=== PATIENT | male | born 1980 | race Caucasian/White ===

== ENCOUNTER → 2016-06-23 | Outpatient (CLI) | payer OTHER ==
[~2016-06-23] MED LIST: CLARITIN-D1 TAB 12 H PO; CLEOCIN PO; HYDROCHLOROTHIA25 MG PO
--- NOTE | ~2016-06-23 | US6 ---
[facility] A Service of [facility] RADIOLOGY TEXT RESULTS PATIENT: ERIC RUSSELL LOCATION: [facility] : [birth year] UNIT #: [id number] AGE: [address]: DOMINICK FERRIS SEX: M ORDER DR: [id number] [facility] [address] [place], [place] [address] [id number] O MR#: [id number] Acc #: [id number] NAME: ERIC RUSSELL : 1980 SEX: M STUDY DATE/TIME: 06/23/2016 10:44 UNIT: [facility] ROOM: STUDY DESCRIPTION: US Abdominal Limited Attending Physician: Shirin Walker Referring Physician: Shirin Walker Ordering Physician: Shirin Walker Primary Care Physician: Rebeca Lerma M.D. MEDICAL IMAGING REPORT This report is preliminary unless electronic signature is present EXAM Right upper quadrant ultrasound INDICATION abnormal elevated liver function tests. TECHNIQUE Gao-scale color Doppler sonographic images were obtained through the right upper quadrant. FINDINGS Limited views of the pancreas are unremarkable. Patient has diffuse hepatic steatosis which makes it very difficult to penetrate the liver. Main portal vein is patent with hepatopetal flow. Liver is enlarged measuring up to 16.6 cm in craniocaudal dimensions. Again I do not see any focal hepatic lesions but it is difficult to fully assess given the suboptimal penetration with the ultrasound beam. Gallbladder is normal in appearance with no gallbladder wall thickening or pericholecystic fluid. No stones or sludge are seen. There is no intra or extrahepatic biliary dilatation. Kidneys normal in appearance. No solid or cystic renal masses are seen. There is no hydronephrosis. IMPRESSION Diffuse hepatic steatosis and hepatomegaly, similar findings were present on a prior ultrasound from 07/06/2014. This makes the liver very difficult to penetrate which limits the sensitivity of the study for evaluation for the presence of underlying mass lesion. Patient's gallbladder and right kidney appear within normal limits. Dictated by... Reva Gilbert M.D. [facility] A Service of [facility] RADIOLOGY TEXT RESULTS PATIENT: ERIC RUSSELL LOCATION: [facility] : 78 UNIT #: [id number] AGE: [address]: DOMINICK FERRIS SEX: M ORDER DR: THIS IS AN ELECTRONICALLY VERIFIED REPORT Reva Gilbert M.D. at 06/24/2016 12:22 PM AFF/ea TD: 06/23/2016 13:49 JOB #: [id number] MEDICAL IMAGING REPORT Page 1 of 1 COPY
== END | disposition home or self-care (01) ==
LOC: CGUS 10:23
DX: R74.8 Abnormal levels of other serum enzymes (principal); K76.0 Fatty (change of) liver, not elsewhere classified
CPT/HCPCS: 76705